=== PATIENT | female | born 1955 | race African-American/Black ===

== ENCOUNTER 2017-12-13 16:16 | Emergency (ER) | payer MEDICAID, OTHER ==
[~2017-12-13] VITALS: Ht 162.6 cm; Wt 60.0 kg
[~2017-12-13 16:16] MED LIST: ASPI-1159 PO; BACL-141 PO; CHOL400T15 PO; ERGO500013 PO; GABA-529 PO; LOSA25TA3 PO; METH-375 PO; SIMV10TA2 PO
[2017-12-13 16:59] LABS: BASOPHILS % 0.8 % (0.0-2.0); EOSINOPHILS % 2.3 % (0.0-5.0); HEMOGLOBIN. 13.6 g/dL (12.0-16.0); LYMPHOCYTES % 24.1 % (20.0-50.0); MEAN CORPUSCULAR HEMOGLOBIN 31.1 pg (28.0-32.0); MEAN CORPUSCULAR VOLUME 91.8 fL (81.0-99.0); MEAN PLATELET VOLUME 6.8 fl (7.4-10.4); MONOCYTES % 9.9 % (2.0-8.0); NEUTROPHILS % 62.9 % (40.0-76.0); PLATELET 325 x1000/uL (130-400); RED BLOOD CELL COUNT 4.36 mill/uL (4.2-5.4); RED CELL DISTRIBUTION WIDTH 14.4 % (11.6-14.6)
[2017-12-13 17:06] LABS: CHLORIDE 105 mEq/L (98-107)
[2017-12-13 17:10] LABS: ETHANOL BLOOD < 10 mg/dL
[2017-12-13 18:48] VITALS: BP 153/88
== END 2017-12-13 18:55 | disposition home or self-care (01) ==
LOC: ER 16:31
DX: R20.2 Paresthesia of skin (principal); E11.9 Type 2 diabetes mellitus without complications; E78.00 Pure hypercholesterolemia, unspecified; I10 Essential (primary) hypertension; Z79.82 Long term (current) use of aspirin; Z86.73 Personal history of transient ischemic attack (TIA), and cerebral infarction without residual deficits
CPT/HCPCS: 36415; 70450; 71045; 80053; 82962; 85025; 99285; G0482

== ENCOUNTER 2018-01-07 16:08 | Emergency (ER) | payer OTHER, MEDICAID ==
[~2018-01-07] VITALS: Ht 162.6 cm; Wt 50.0 kg
[2018-01-07 16:14] VITALS: BP 120/62
== END 2018-01-07 19:36 | disposition left against medical advice (07) ==
LOC: ER 16:25
DX: R20.0 Anesthesia of skin (principal); R53.1 Weakness; E11.9 Type 2 diabetes mellitus without complications; I10 Essential (primary) hypertension; E78.00 Pure hypercholesterolemia, unspecified
CPT/HCPCS: 99283

== ENCOUNTER 2019-06-22 10:56 | Inpatient (IN) | payer MEDICAID, OTHER ==
[~2019-06-22] VITALS: Ht 152.4 cm; Wt 49.4 kg
[~2019-06-22 10:56] MED LIST changes: -ASPI-1159 PO; +ASPI-1393 PO
[2019-06-22] MEDS ORDERED: SODIUM CHLORIDE 0.9% 500 ML IV ONE (11:44)
[2019-06-22 12:00] LABS: BASOPHILS % 0.7 % (0.0-2.0); EOSINOPHILS % 2.5 % (0.0-5.0); HEMATOCRIT. 39.7 % (36.0-48.0); HEMOGLOBIN. 13.3 g/dL (12.0-16.0); LYMPHOCYTES % 21.2 % (20.0-50.0); MEAN CORPUSCULAR HEMOGLOBIN 31.7 pg (28.0-32.0); MEAN CORPUSCULAR VOLUME 94.6 fL (81.0-99.0); MEAN PLATELET VOLUME 6.9 fl (7.4-10.4); MONOCYTES % 9.8 % (2.0-8.0); NEUTROPHILS % 65.8 % (40.0-76.0); PLATELET 385 x1000/uL (130-400); RED BLOOD CELL COUNT 4.19 mill/uL (4.2-5.4); RED CELL DISTRIBUTION WIDTH 13.5 % (11.6-14.6)
[2019-06-22 12:05] LABS: CHLORIDE 106 mEq/L (98-107)
[2019-06-22 12:09] LABS: CLARITY URINE CLOUDY (CLEAR); COLOR URINE YELLOW (YELLOW); KETONES URINE NEGATIVE (NEGATIVE); LEUKOCYTE ESTERASE URINE TRACE (NEGATIVE); NITRITE URINE NEGATIVE (NEGATIVE); OCCULT BLOOD URINE NEGATIVE (NEGATIVE); PROTEIN URINE NEGATIVE (NEGATIVE); SPECIFIC GRAVITY URINE 1.014 (1.005-1.030)
[2019-06-22 12:16] LABS: CREATINE KINASE 251 IU/L (26-192)
[2019-06-22 12:19] LABS: CREATINE KINASE MB FRACTION 3.9 ng/mL (0.5-3.6)
[2019-06-22] MEDS ORDERED: TRAMADOL 50MG TABLET PO ONE (14:00)
[2019-06-22] MEDS ORDERED: GABAPENTIN 300MG CAPSULE PO ONE (14:00)
[2019-06-22 17:00] VITALS: BP 93/76
[2019-06-22] MEDS ORDERED: IPRATROPIUM/ALBUTEROL 0.5-3(2.5)MG/3ML NEB HHN PRN (17:15)
[2019-06-22] MEDS ORDERED: GUAIFENESIN 200MG/10ML SUGAR FREE UDC PO PRN (17:15)
[2019-06-22] MEDS ORDERED: DIPHENHYDRAMINE 50MG/ML VIAL IV PRN (17:15)
[2019-06-22] MEDS ORDERED: HYDROCODONE/ACETAMINOPHEN 10/325MG TABLET PO PRN (17:15)
[2019-06-22] MEDS ORDERED: NA PHOS,M-B/NA PHOS,DI-BA ENEMA 118ML PR PRN (17:15)
[2019-06-22] MEDS ORDERED: ACETAMINOPHEN 325MG TABLET PO PRN (17:15)
[2019-06-22] MEDS ORDERED: LORAZEPAM 2MG/ML CPJ IV PRN (17:15)
[2019-06-22] MEDS ORDERED: MORPHINE SULFATE 2 MG/ML CPJ (NOT FOR IM USE) IV PRN (17:15)
[2019-06-22] MEDS ORDERED: ONDANSETRON HCL 4MG/2ML INJ IV PRN (17:15)
[2019-06-22] MEDS ORDERED: MAGNESIUM/ALUMINUM HYDROXIDE/SIMETHICONE 30ML UDC PO PRN (17:15)
[2019-06-22] MEDS ORDERED: CLONIDINE 0.1MG TABLET PO PRN (17:15)
[2019-06-22] MEDS ORDERED: DEXTROSE 50% WATER 50ML SYRINGE IV PRN (17:15)
[2019-06-22] MEDS ORDERED: DOCUSATE SODIUM 100MG CAPSULE PO PRN (17:15)
[2019-06-22] MEDS: BLOOD SUGAR DIAGNOSTIC STRIP TEST SCH ×2 (19:04→21:46)
[2019-06-22] MEDS: INSULIN LISPRO 100 UNITS/ML SUBCUT SCH ×2 (19:04→21:00)
[2019-06-22] MEDS: ENOXAPARIN 40MG/0.4ML SYR SUBCUT SCH (19:23)
[2019-06-22 20:49] VITALS: BP 126/62
[2019-06-22] MEDS: SODIUM CHLORIDE 0.9% INJ 3ML FLUSH IVF SCH (22:00)
[2019-06-23] VITALS: BP 124/89
[2019-06-23 01:53] LABS: CREATINE KINASE 171 IU/L (26-192)
[2019-06-23 04:44] VITALS: BP 161/63
[2019-06-23] MEDS: BLOOD SUGAR DIAGNOSTIC STRIP TEST SCH ×4 (07:10→21:27)
[2019-06-23] MEDS: SODIUM CHLORIDE 0.9% INJ 3ML FLUSH IVF SCH ×3 (07:10→21:29)
[2019-06-23] MEDS: INSULIN LISPRO 100 UNITS/ML SUBCUT SCH ×4 (07:13→21:00)
[2019-06-23 08:00] VITALS: BP 86/52
[2019-06-23 08:11] LABS: HEMATOCRIT. 38.2 % (36.0-48.0); HEMOGLOBIN. 12.7 g/dL (12.0-16.0); MEAN CORPUSCULAR HEMOGLOBIN 31.7 pg (28.0-32.0); MEAN CORPUSCULAR VOLUME 95.3 fL (81.0-99.0); MEAN PLATELET VOLUME 6.7 fl (7.4-10.4); PLATELET 366 x1000/uL (130-400); RED CELL DISTRIBUTION WIDTH 13.9 % (11.6-14.6)
[2019-06-23 08:17] LABS: CHLORIDE 106 mEq/L (98-107)
[2019-06-23 08:26] LABS: LDL CHOLESTEROL 106 mg/dL (5-100)
[2019-06-23 08:27] LABS: CREATINE KINASE 193 IU/L (26-192); CREATINE KINASE MB FRACTION 4.8 ng/mL (0.5-3.6); HDL CHOLESTEROL 81 mg/dL (40-59)
[2019-06-23 11:31] LABS: PLATELET ESTIMATE NORMAL
[2019-06-23 12:00] VITALS: BP 145/88
[2019-06-23 13:54] LABS: *AMPHETAMINES SCREEN URINE NEGATIVE (NEGATIVE); *BENZODIAZEPINES SCREEN URINE NEGATIVE (NEGATIVE); *COCAINE SCREEN URINE PRESUMTIVE POSITIVE (NEGATIVE); METHADONE URINE SCREEN NEGATIVE (NEGATIVE)
[2019-06-23 13:55] LABS: *BARBITURATES SCREEN URINE NEGATIVE (NEGATIVE); CANNABINOID URINE SCREEN NEGATIVE (NEGATIVE); OPIATES URINE SCREEN NEGATIVE (NEGATIVE); PHENCYCLIDINE URINE SCREEN NEGATIVE (NEGATIVE)
[2019-06-23 16:00] VITALS: BP 177/92
[2019-06-23] MEDS: ASPIRIN 81MG EC TABLET PO SCH (16:30)
[2019-06-23 20:00] VITALS: BP 145/68
[2019-06-23] MEDS: ATORVASTATIN CALCIUM 20MG TABLET PO SCH (21:27)
[2019-06-24] VITALS: BP 130/83
[2019-06-24 04:00] VITALS: BP 159/77
[2019-06-24] MEDS: BLOOD SUGAR DIAGNOSTIC STRIP TEST SCH ×4 (06:34→21:00)
[2019-06-24] MEDS: SODIUM CHLORIDE 0.9% INJ 3ML FLUSH IVF SCH ×3 (06:34→22:08)
[2019-06-24 06:46] LABS: BASOPHILS % 0.2 % (0.0-2.0); EOSINOPHILS % 2.9 % (0.0-5.0); HEMATOCRIT. 36.1 % (36.0-48.0); HEMOGLOBIN. 12.1 g/dL (12.0-16.0); LYMPHOCYTES % 24.1 % (20.0-50.0); MEAN CORPUSCULAR HEMOGLOBIN 31.9 pg (28.0-32.0); MEAN CORPUSCULAR VOLUME 95.1 fL (81.0-99.0); MONOCYTES % 10.8 % (2.0-8.0); PLATELET 324 x1000/uL (130-400); RED BLOOD CELL COUNT 3.79 mill/uL (4.2-5.4); RED CELL DISTRIBUTION WIDTH 13.5 % (11.6-14.6)
[2019-06-24 06:50] LABS: CHLORIDE 106 mEq/L (98-107)
[2019-06-24] MEDS: INSULIN LISPRO 100 UNITS/ML SUBCUT SCH ×4 (07:45→21:00)
[2019-06-24 08:07] VITALS: BP 134/68
[2019-06-24] MEDS: ASPIRIN 81MG EC TABLET PO SCH (09:13)
[2019-06-24 11:56] VITALS: BP 183/91
[2019-06-24] MEDS: HYDRALAZINE 20MG/ML VIAL IV PRN (12:26)
[2019-06-24 16:30] VITALS: BP 156/84
[2019-06-24] MEDS: ENOXAPARIN 40MG/0.4ML SYR SUBCUT SCH ×2 (17:38→18:00)
[2019-06-24 20:00] VITALS: BP 120/75
[2019-06-24] MEDS: ATORVASTATIN CALCIUM 20MG TABLET PO SCH (22:08)
[2019-06-25] VITALS: BP 163/78
[2019-06-25 04:00] VITALS: BP 167/84
[2019-06-25] MEDS: SODIUM CHLORIDE 0.9% INJ 3ML FLUSH IVF SCH ×3 (06:25→20:59)
[2019-06-25] MEDS: BLOOD SUGAR DIAGNOSTIC STRIP TEST SCH ×4 (07:20→20:58)
[2019-06-25] MEDS: INSULIN LISPRO 100 UNITS/ML SUBCUT SCH ×4 (07:50→20:58)
[2019-06-25 08:18] VITALS: BP 153/86
[2019-06-25] MEDS: ASPIRIN 81MG EC TABLET PO SCH (09:02)
[2019-06-25 12:01] VITALS: BP 92/77
[2019-06-25 16:01] VITALS: BP 151/78
[2019-06-25 16:20] LABS: CREATINE KINASE 323 IU/L (26-192)
[2019-06-25 16:21] LABS: CREATINE KINASE MB FRACTION 4.9 ng/mL (0.5-3.6)
[2019-06-25 16:22] LABS: T4 FREE 1.01 ng/dL (0.76-1.46)
[2019-06-25] MEDS: ENOXAPARIN 40MG/0.4ML SYR SUBCUT SCH (17:29)
[2019-06-25 20:00] VITALS: BP 146/82
[2019-06-25] MEDS: ATORVASTATIN CALCIUM 20MG TABLET PO SCH (20:58)
[2019-06-26] VITALS: BP 159/82
[2019-06-26 04:00] VITALS: BP 172/90
[2019-06-26] MEDS: SODIUM CHLORIDE 0.9% INJ 3ML FLUSH IVF SCH ×3 (05:06→20:53)
[2019-06-26] MEDS: HYDRALAZINE 20MG/ML VIAL IV PRN (05:06)
[2019-06-26] MEDS: BLOOD SUGAR DIAGNOSTIC STRIP TEST SCH ×4 (07:50→20:53)
[2019-06-26] MEDS: INSULIN LISPRO 100 UNITS/ML SUBCUT SCH ×4 (07:50→21:00)
[2019-06-26] MEDS ORDERED: HEPARIN 100 UNITS/1 ML VIAL IVF PRN (08:15)
[2019-06-26] MEDS: ASPIRIN 81MG EC TABLET PO SCH (10:52)
[2019-06-26 12:13] VITALS: BP 101/62
[2019-06-26 14:35] VITALS: BP 163/90
[2019-06-26] MEDS ORDERED: IOHEXOL-350 100 ML BOTTLE ONE (15:12)
[2019-06-26 16:26] LABS: EOSINOPHILS % 0.4 % (0.0-5.0); HEMATOCRIT. 39.6 % (36.0-48.0); HEMOGLOBIN. 13.2 g/dL (12.0-16.0); LYMPHOCYTES % 16.2 % (20.0-50.0); MEAN CORPUSCULAR HEMOGLOBIN 31.7 pg (28.0-32.0); MEAN CORPUSCULAR VOLUME 95.1 fL (81.0-99.0); MEAN PLATELET VOLUME 6.9 fl (7.4-10.4); NEUTROPHILS % 72.4 % (40.0-76.0); PLATELET 344 x1000/uL (130-400); RED BLOOD CELL COUNT 4.17 mill/uL (4.2-5.4)
[2019-06-26 16:29] LABS: CHLORIDE 108 mEq/L (98-107)
[2019-06-26 16:36] LABS: CREATINE KINASE 270 IU/L (26-192)
[2019-06-26 16:38] LABS: CREATINE KINASE 268 IU/L (26-192); CREATINE KINASE MB FRACTION 3.8 ng/mL (0.5-3.6)
[2019-06-26 16:39] VITALS: BP 134/82
[2019-06-26 16:39] LABS: CREATINE KINASE MB FRACTION 3.9 ng/mL (0.5-3.6)
[2019-06-26] MEDS: ENOXAPARIN 40MG/0.4ML SYR SUBCUT SCH (17:27)
[2019-06-26 20:00] VITALS: BP 147/82
[2019-06-26] MEDS: ATORVASTATIN CALCIUM 20MG TABLET PO SCH (20:51)
[2019-06-27] VITALS: BP 154/82
[2019-06-27 04:00] VITALS: BP 158/100
[2019-06-27] MEDS: SODIUM CHLORIDE 0.9% INJ 3ML FLUSH IVF SCH ×3 (05:23→21:14)
[2019-06-27 06:50] LABS: CHLORIDE 108 mEq/L (98-107)
[2019-06-27 07:17] LABS: HEMATOCRIT. 35.3 % (36.0-48.0); HEMOGLOBIN. 11.9 g/dL (12.0-16.0); MEAN CORPUSCULAR HEMOGLOBIN 32.2 pg (28.0-32.0); MEAN PLATELET VOLUME 7.1 fl (7.4-10.4); PLATELET 317 x1000/uL (130-400); RED BLOOD CELL COUNT 3.71 mill/uL (4.2-5.4); RED CELL DISTRIBUTION WIDTH 13.4 % (11.6-14.6)
[2019-06-27] MEDS: BLOOD SUGAR DIAGNOSTIC STRIP TEST SCH ×4 (07:20→21:14)
[2019-06-27] MEDS: INSULIN LISPRO 100 UNITS/ML SUBCUT SCH ×4 (07:50→21:00)
[2019-06-27 08:00] VITALS: BP 140/76
[2019-06-27 09:23] LABS: PLATELET ESTIMATE NORMAL
[2019-06-27] MEDS: ASPIRIN 81MG EC TABLET PO SCH (09:24)
[2019-06-27 12:00] VITALS: BP 132/81
[2019-06-27 16:00] VITALS: BP 156/74
[2019-06-27] MEDS: ENOXAPARIN 40MG/0.4ML SYR SUBCUT SCH (19:23)
[2019-06-27 20:00] VITALS: BP 140/72
[2019-06-27] MEDS: ATORVASTATIN CALCIUM 20MG TABLET PO SCH (21:14)
[2019-06-28] VITALS: BP 168/74
[2019-06-28 04:00] VITALS: BP 109/64
[2019-06-28] MEDS: SODIUM CHLORIDE 0.9% INJ 3ML FLUSH IVF SCH ×2 (05:11→13:19)
[2019-06-28] MEDS: BLOOD SUGAR DIAGNOSTIC STRIP TEST SCH ×3 (06:31→18:04)
[2019-06-28] MEDS: INSULIN LISPRO 100 UNITS/ML SUBCUT SCH ×3 (07:50→17:50)
[2019-06-28 08:19] VITALS: BP 131/64
[2019-06-28] MEDS: ASPIRIN 81MG EC TABLET PO SCH (08:33)
[2019-06-28 12:03] VITALS: BP 129/71
[2019-06-28 16:22] VITALS: BP 129/71
[2019-06-28 16:44] VITALS: BP 148/78
[2019-06-28] MEDS: ENOXAPARIN 40MG/0.4ML SYR SUBCUT SCH (18:05)
== END 2019-06-28 21:00 | disposition home health service (06) | DRG 45 ==
LOC: ER 10:56 → 6WST 14:14 → EDBEDREQTM 14:21 → EDBEDREQ 14:21 → ENRESERV 15:59 → 6WST 06-23 09:38
PROVIDERS: ADMIT Internal Medicine; ATTEND Internal Medicine
PROC: 4A00X4Z Measurement of Central Nervous Electrical Activity, External Approach (ICD-10-PCS; principal; 2019-06-24)
PROC: 05HY33Z Insertion of Infusion Device into Upper Vein, Percutaneous Approach (ICD-10-PCS; 2019-06-26)
PROC: B54MZZA Ultrasonography of Right Upper Extremity Veins, Guidance (ICD-10-PCS; 2019-06-26)
PROC: B51M1ZA Fluoroscopy of Right Upper Extremity Veins using Low Osmolar Contrast, Guidance (ICD-10-PCS; 2019-06-26)
DX: I63.9 Cerebral infarction, unspecified (principal); I11.9 Hypertensive heart disease without heart failure; E11.9 Type 2 diabetes mellitus without complications; I65.21 Occlusion and stenosis of right carotid artery; E78.5 Hyperlipidemia, unspecified; E78.00 Pure hypercholesterolemia, unspecified; R29.6 Repeated falls; Z79.899 Other long term (current) drug therapy; Z79.82 Long term (current) use of aspirin
CPT/HCPCS: 36415; 36573; 70498; 70551; 71045; 76937; 80048; 80061; 80305; 81003; 82550; 82553; 82962; 83036; 83735; 83880; 84439; 84443; 84484; 85379; 93005; 93306; 93880; 93970; 95816; 97116; 97162; 97530; 99285; C1725; J0360; J1650; J7040; Q9967

== ENCOUNTER 2019-09-01 08:39 | Emergency (ER) | payer MEDICAID, OTHER ==
[~2019-09-01] VITALS: Ht 165.1 cm; Wt 59.0 kg
[~2019-09-01 08:39] MED LIST changes: -ASPI-1393 PO; +ASPI-1497 PO
[2019-09-01] MEDS ORDERED: OXYCODONE HCL/ACETAMINOPHEN 5/325MG TABLET PO ONE (09:00)
[2019-09-01 14:21] VITALS: BP 126/78
== END 2019-09-01 14:24 | disposition home or self-care (01) ==
LOC: ER 08:39
DX: S86.911A Strain of unspecified muscle(s) and tendon(s) at lower leg level, right leg, initial encounter (principal); I10 Essential (primary) hypertension; E11.9 Type 2 diabetes mellitus without complications; E78.00 Pure hypercholesterolemia, unspecified; F17.210 Nicotine dependence, cigarettes, uncomplicated; Z86.73 Personal history of transient ischemic attack (TIA), and cerebral infarction without residual deficits; X58.XXXA Exposure to other specified factors, initial encounter; Y93.89 Activity, other specified; Y92.018 Other place in single-family (private) house as the place of occurrence of the external cause
CPT/HCPCS: 73590; 99283

== ENCOUNTER 2021-01-19 16:30 | Inpatient (IN) | payer MEDICARE, OTHER ==
[~2021-01-19] VITALS: Ht 162.6 cm; Wt 45.6 kg
[2021-01-19] MEDS ORDERED: MAGNESIUM/ALUMINUM HYDROXIDE/SIMETHICONE 30ML UDC PO STA (17:09)
[2021-01-19 17:29] LABS: BASOPHILS % 0.3 % (0.0-2.0); EOSINOPHILS % 2.5 % (0.0-5.0); HEMATOCRIT. 28.6 % (36.0-48.0); HEMOGLOBIN. 9.6 g/dL (12.0-16.0); LYMPHOCYTES % 17.1 % (20.0-50.0); MEAN CORPUSCULAR HEMOGLOBIN 30.6 pg (28.0-32.0); MEAN CORPUSCULAR VOLUME 90.7 fL (81.0-99.0); MEAN PLATELET VOLUME 7.3 fl (7.4-10.4); MONOCYTES % 7.7 % (2.0-8.0); NEUTROPHILS % 72.4 % (40.0-76.0); PLATELET 258 x1000/uL (130-400); RED BLOOD CELL COUNT 3.15 mill/uL (4.2-5.4); RED CELL DISTRIBUTION WIDTH 14.7 % (11.6-14.6)
[2021-01-19 17:47] LABS: CHLORIDE 113 mEq/L (98-107)
[2021-01-19 21:37] LABS: CLARITY URINE CLOUDY (CLEAR); COLOR URINE YELLOW (YELLOW); KETONES URINE NEGATIVE (NEGATIVE); LEUKOCYTE ESTERASE URINE 1+ (NEGATIVE); NITRITE URINE NEGATIVE (NEGATIVE); OCCULT BLOOD URINE NEGATIVE (NEGATIVE); PROTEIN URINE TRACE (NEGATIVE); SPECIFIC GRAVITY URINE 1.021 (1.005-1.030); UROBILINOGEN URINE 0.2 E.U./dL (0.2-1.0)
[2021-01-19] MEDS ORDERED: IOHEXOL-350 100 ML BOTTLE ONE (21:58)
[2021-01-19] MEDS ORDERED: NICARDIPINE 50 MG in SODIUM CHLORIDE 0.9% 230 ML IV STA (22:44)
[2021-01-19] MEDS ORDERED: CEFTRIAXONE 1 G PREMIX 50 ML IV ONE (22:45)
[2021-01-19] MEDS ORDERED: NICARDIPINE 40MG/200ML PREMIX 200 ML IV PRN ×2 (23:00→23:30)
[2021-01-20] VITALS (87 sets, daily range): BP systolic 73–182; BP diastolic 49–98
[2021-01-20] MEDS: NICARDIPINE 50 MG in SODIUM CHLORIDE 0.9% 250 ML IV PRN ×2 (03:11→22:06)
[2021-01-20 06:01] LABS: BASOPHILS % 0.8 % (0.0-2.0); EOSINOPHILS % 4.5 % (0.0-5.0); HEMATOCRIT. 29.7 % (36.0-48.0); LYMPHOCYTES % 27.8 % (20.0-50.0); MEAN CORPUSCULAR HEMOGLOBIN 30.2 pg (28.0-32.0); MEAN CORPUSCULAR VOLUME 89.9 fL (81.0-99.0); NEUTROPHILS % 56.9 % (40.0-76.0); RED BLOOD CELL COUNT 3.31 mill/uL (4.2-5.4); RED CELL DISTRIBUTION WIDTH 14.6 % (11.6-14.6)
[2021-01-20 12:20] LABS: PLATELET 238 x1000/uL (130-400)
[2021-01-20] MEDS ORDERED: DEXTROSE 50% WATER 50ML SYRINGE IV PRN (19:45)
[2021-01-20] MEDS: METOPROLOL TARTRATE 50MG TABLET PO SCH (19:49)
[2021-01-20] MEDS: ACETAMINOPHEN 325MG TABLET PO PRN (19:49)
[2021-01-20] MEDS: ATORVASTATIN CALCIUM 40MG TABLET PO SCH (19:49)
[2021-01-20] MEDS: BLOOD SUGAR DIAGNOSTIC STRIP TEST SCH (21:00)
[2021-01-20] MEDS ORDERED: BLOOD SUGAR DIAGNOSTIC STRIP TEST SCH (21:00)
[2021-01-20] MEDS: INSULIN LISPRO 100 UNITS/ML SUBCUT SCH (21:00)
[2021-01-21] VITALS (86 sets, daily range): BP systolic 86–161; BP diastolic 40–97
[2021-01-21] MEDS: NICARDIPINE 50 MG in SODIUM CHLORIDE 0.9% 250 ML IV PRN ×2 (04:07→14:13)
[2021-01-21 06:10] LABS: BASOPHILS % 0.7 % (0.0-2.0); EOSINOPHILS % 5.4 % (0.0-5.0); HEMATOCRIT. 32.1 % (36.0-48.0); HEMOGLOBIN. 10.6 g/dL (12.0-16.0); LYMPHOCYTES % 22.5 % (20.0-50.0); MEAN CORPUSCULAR HEMOGLOBIN 30.1 pg (28.0-32.0); MEAN PLATELET VOLUME 7.1 fl (7.4-10.4); MONOCYTES % 10.6 % (2.0-8.0); NEUTROPHILS % 60.8 % (40.0-76.0); PLATELET 247 x1000/uL (130-400); RED BLOOD CELL COUNT 3.52 mill/uL (4.2-5.4); RED CELL DISTRIBUTION WIDTH 14.5 % (11.6-14.6)
[2021-01-21 06:13] LABS: CHLORIDE 113 mEq/L (98-107)
[2021-01-21] MEDS: BLOOD SUGAR DIAGNOSTIC STRIP TEST SCH ×4 (07:50→21:00)
[2021-01-21] MEDS: INSULIN LISPRO 100 UNITS/ML SUBCUT SCH ×4 (08:20→21:00)
[2021-01-21] MEDS: METOPROLOL TARTRATE 50MG TABLET PO SCH ×2 (09:02→21:00)
[2021-01-21 09:50] LABS: BASOPHILS % 0.7 % (0.0-2.0); EOSINOPHILS % 3.2 % (0.0-5.0); HEMOGLOBIN. 10.6 g/dL (12.0-16.0); LYMPHOCYTES % 22.3 % (20.0-50.0); MEAN CORPUSCULAR HEMOGLOBIN 30.4 pg (28.0-32.0); MEAN CORPUSCULAR VOLUME 91.5 fL (81.0-99.0); MEAN PLATELET VOLUME 7.1 fl (7.4-10.4); MONOCYTES % 8.9 % (2.0-8.0); NEUTROPHILS % 64.9 % (40.0-76.0); PLATELET 261 x1000/uL (130-400); RED BLOOD CELL COUNT 3.49 mill/uL (4.2-5.4); RED CELL DISTRIBUTION WIDTH 14.4 % (11.6-14.6)
[2021-01-21 12:30] LABS: CHLORIDE 111 mEq/L (98-107)
[2021-01-21] MEDS ORDERED: LORAZEPAM 2MG/ML CPJ IV PRN (18:15)
[2021-01-21] MEDS: NICOTINE 21MG PATCH TD SCH (21:00)
[2021-01-21] MEDS: ATORVASTATIN CALCIUM 40MG TABLET PO SCH (21:00)
[2021-01-21] MEDS ORDERED: ASPIRIN 300MG SUPP PR NR (22:30)
[2021-01-21] MEDS ORDERED: IOHEXOL-350 100 ML BOTTLE ONE (23:54)
[2021-01-22] VITALS (84 sets, daily range): BP systolic 99–148; BP diastolic 53–95
[2021-01-22 05:20] LABS: BASOPHILS % 0.6 % (0.0-2.0); EOSINOPHILS % 1.7 % (0.0-5.0); HEMATOCRIT. 32.6 % (36.0-48.0); HEMOGLOBIN. 10.9 g/dL (12.0-16.0); LYMPHOCYTES % 20.9 % (20.0-50.0); MEAN CORPUSCULAR HEMOGLOBIN 30.2 pg (28.0-32.0); MEAN CORPUSCULAR VOLUME 89.9 fL (81.0-99.0); MONOCYTES % 11.1 % (2.0-8.0); NEUTROPHILS % 65.7 % (40.0-76.0); PLATELET 253 x1000/uL (130-400); RED BLOOD CELL COUNT 3.63 mill/uL (4.2-5.4); RED CELL DISTRIBUTION WIDTH 14.6 % (11.6-14.6)
[2021-01-22 05:56] LABS: CHLORIDE 111 mEq/L (98-107)
[2021-01-22] MEDS: NICARDIPINE 50 MG in SODIUM CHLORIDE 0.9% 250 ML IV PRN ×2 (07:28→22:52)
[2021-01-22] MEDS: INSULIN LISPRO 100 UNITS/ML SUBCUT SCH ×4 (08:20→20:19)
[2021-01-22] MEDS: BLOOD SUGAR DIAGNOSTIC STRIP TEST SCH ×4 (08:23→20:20)
[2021-01-22] MEDS: METOPROLOL TARTRATE 50MG TABLET PO SCH ×2 (08:40→20:19)
[2021-01-22] MEDS: LOSARTAN POTASSIUM 50 MG TABLET PO SCH (11:26)
[2021-01-22] MEDS: ATORVASTATIN CALCIUM 40MG TABLET PO SCH (20:14)
[2021-01-22] MEDS: NICOTINE 21MG PATCH TD SCH (20:20)
[2021-01-23] VITALS (90 sets, daily range): BP systolic 94–157; BP diastolic 34–123
[2021-01-23 00:47] LABS: ETHANOL BLOOD < 10 mg/dL
[2021-01-23 01:02] LABS: T4 FREE 1.11 ng/dL (0.76-1.46)
[2021-01-23 01:05] LABS: FOLIC ACID (FOLATE) SERUM 17.2 ng/mL (>5.38)
[2021-01-23 05:46] LABS: BASOPHILS % 0.5 % (0.0-2.0); EOSINOPHILS % 3.6 % (0.0-5.0); HEMATOCRIT. 30.5 % (36.0-48.0); MEAN CORPUSCULAR HEMOGLOBIN 29.8 pg (28.0-32.0); MEAN CORPUSCULAR VOLUME 90.9 fL (81.0-99.0); MEAN PLATELET VOLUME 7.3 fl (7.4-10.4); MONOCYTES % 13.9 % (2.0-8.0); PLATELET 241 x1000/uL (130-400); RED BLOOD CELL COUNT 3.35 mill/uL (4.2-5.4); RED CELL DISTRIBUTION WIDTH 14.8 % (11.6-14.6)
[2021-01-23] MEDS: INSULIN LISPRO 100 UNITS/ML SUBCUT SCH ×4 (08:07→20:26)
[2021-01-23] MEDS: BLOOD SUGAR DIAGNOSTIC STRIP TEST SCH ×4 (08:07→20:26)
[2021-01-23] MEDS: METOPROLOL TARTRATE 50MG TABLET PO SCH ×2 (08:54→20:32)
[2021-01-23] MEDS: LOSARTAN POTASSIUM 50 MG TABLET PO SCH (08:54)
[2021-01-23] MEDS: LACTULOSE 20G/30ML UDC PO SCH ×2 (15:26→22:17)
[2021-01-23] MEDS: ACETAMINOPHEN 325MG TABLET PO PRN (18:25)
[2021-01-23] MEDS: ATORVASTATIN CALCIUM 40MG TABLET PO SCH (20:32)
[2021-01-23] MEDS: NICOTINE 21MG PATCH TD SCH (20:32)
[2021-01-23] MEDS: NICARDIPINE 50 MG in SODIUM CHLORIDE 0.9% 250 ML IV PRN (23:29)
[2021-01-23 23:42] LABS: *AMPHETAMINES SCREEN URINE NEGATIVE (NEGATIVE); *BARBITURATES SCREEN URINE NEGATIVE (NEGATIVE); *BENZODIAZEPINES SCREEN URINE NEGATIVE (NEGATIVE); *COCAINE SCREEN URINE NEGATIVE (NEGATIVE); METHADONE URINE SCREEN NEGATIVE (NEGATIVE); OPIATES URINE SCREEN NEGATIVE (NEGATIVE)
[2021-01-23 23:43] LABS: CANNABINOID URINE SCREEN NEGATIVE (NEGATIVE); PHENCYCLIDINE URINE SCREEN NEGATIVE (NEGATIVE)
[2021-01-24] VITALS (82 sets, daily range): BP systolic 114–217; BP diastolic 38–107
[2021-01-24 05:53] LABS: BASOPHILS % 0.6 % (0.0-2.0); EOSINOPHILS % 5.2 % (0.0-5.0); HEMATOCRIT. 30.5 % (36.0-48.0); LYMPHOCYTES % 24.5 % (20.0-50.0); MEAN CORPUSCULAR HEMOGLOBIN 29.7 pg (28.0-32.0); MEAN CORPUSCULAR VOLUME 91.1 fL (81.0-99.0); MONOCYTES % 14.4 % (2.0-8.0); NEUTROPHILS % 55.3 % (40.0-76.0); PLATELET 224 x1000/uL (130-400); RED BLOOD CELL COUNT 3.35 mill/uL (4.2-5.4); RED CELL DISTRIBUTION WIDTH 14.4 % (11.6-14.6)
[2021-01-24 06:03] LABS: CHLORIDE 111 mEq/L (98-107)
[2021-01-24] MEDS: BLOOD SUGAR DIAGNOSTIC STRIP TEST SCH ×4 (07:50→21:00)
[2021-01-24] MEDS: INSULIN LISPRO 100 UNITS/ML SUBCUT SCH ×4 (08:20→21:00)
[2021-01-24] MEDS: LOSARTAN POTASSIUM 50 MG TABLET PO SCH (09:41)
[2021-01-24] MEDS: METOPROLOL TARTRATE 50MG TABLET PO SCH ×2 (09:41→20:59)
[2021-01-24] MEDS: ACETAMINOPHEN 325MG TABLET PO PRN (10:54)
[2021-01-24] MEDS: NICARDIPINE 50 MG in SODIUM CHLORIDE 0.9% 250 ML IV PRN (11:50)
[2021-01-24] MEDS ORDERED: METO-539 PO (13:16)
[2021-01-24] MEDS ORDERED: HYDR-4135 MT (13:54)
[2021-01-24] MEDS ORDERED: HYDRALAZINE HCL 25MG TABLET PO SCH (14:00)
[2021-01-24] MEDS: HYDRALAZINE HCL 50MG TABLET PO SCH (20:59)
[2021-01-24] MEDS: ATORVASTATIN CALCIUM 40MG TABLET PO SCH (20:59)
[2021-01-24] MEDS: NICOTINE 21MG PATCH TD SCH (21:01)
[2021-01-25] VITALS (36 sets, daily range): BP systolic 76–175; BP diastolic 22–125
[2021-01-25 05:46] LABS: BASOPHILS % 0.6 % (0.0-2.0); EOSINOPHILS % 4.8 % (0.0-5.0); HEMATOCRIT. 32.5 % (36.0-48.0); HEMOGLOBIN. 10.6 g/dL (12.0-16.0); LYMPHOCYTES % 21.5 % (20.0-50.0); MEAN CORPUSCULAR HEMOGLOBIN 29.2 pg (28.0-32.0); MEAN CORPUSCULAR VOLUME 89.9 fL (81.0-99.0); MEAN PLATELET VOLUME 7.2 fl (7.4-10.4); MONOCYTES % 11.8 % (2.0-8.0); NEUTROPHILS % 61.3 % (40.0-76.0); PLATELET 261 x1000/uL (130-400); RED BLOOD CELL COUNT 3.62 mill/uL (4.2-5.4); RED CELL DISTRIBUTION WIDTH 14.6 % (11.6-14.6)
[2021-01-25 05:53] LABS: CHLORIDE 111 mEq/L (98-107)
[2021-01-25] MEDS ORDERED: HYDRALAZINE 20MG/ML VIAL IV PRN (08:00)
[2021-01-25] MEDS: INSULIN LISPRO 100 UNITS/ML SUBCUT SCH ×4 (08:20→20:44)
[2021-01-25] MEDS: BLOOD SUGAR DIAGNOSTIC STRIP TEST SCH ×4 (08:43→20:45)
[2021-01-25] MEDS: HYDRALAZINE HCL 50MG TABLET PO SCH ×3 (09:30→17:46)
[2021-01-25] MEDS: LOSARTAN POTASSIUM 50 MG TABLET PO SCH ×2 (09:31→20:43)
[2021-01-25] MEDS: METOPROLOL TARTRATE 50MG TABLET PO SCH ×2 (09:31→20:44)
[2021-01-25] MEDS: ACETAMINOPHEN 325MG TABLET PO PRN (09:33)
[2021-01-25] MEDS ORDERED: ISOSORBIDE MONONITRATE 30MG TABLET SR 24HR PO SCH (11:00)
[2021-01-25] MEDS: NICOTINE 21MG PATCH TD SCH (20:44)
[2021-01-25] MEDS: ATORVASTATIN CALCIUM 40MG TABLET PO SCH (20:44)
== END 2021-01-25 19:50 | disposition home or self-care (01) | DRG 197 ==
LOC: ER 16:38 → CANRESERV 23:23 → ENRESERV 23:23 → CVICU 23:28 → EDBEDREQTM 23:31 → EDBEDREQ 23:31 → EDBEDREQSVC 23:31 → ENRESERV 23:41
PROVIDERS: ADMIT Internal Medicine; ATTEND Internal Medicine
PROC: 4A10X4Z Monitoring of Central Nervous Electrical Activity, External Approach (ICD-10-PCS; principal; 2021-01-23)
DX: I71.4 Abdominal aortic aneurysm, without rupture (principal); E43 Unspecified severe protein-calorie malnutrition; G92 Toxic encephalopathy; J84.9 Interstitial pulmonary disease, unspecified; E11.51 Type 2 diabetes mellitus with diabetic peripheral angiopathy without gangrene; I69.354 Hemiplegia and hemiparesis following cerebral infarction affecting left non-dominant side; R56.9 Unspecified convulsions; I16.9 Hypertensive crisis, unspecified; I65.21 Occlusion and stenosis of right carotid artery; D64.9 Anemia, unspecified; E78.5 Hyperlipidemia, unspecified; I10 Essential (primary) hypertension; J44.9 Chronic obstructive pulmonary disease, unspecified; Z20.822 Contact with and (suspected) exposure to COVID-19; E78.00 Pure hypercholesterolemia, unspecified; I71.2 Thoracic aortic aneurysm, without rupture; Z87.891 Personal history of nicotine dependence; Z79.899 Other long term (current) drug therapy; Z68.1 Body mass index [BMI] 19.9 or less, adult
CPT/HCPCS: 36415; 70496; 70498; 70551; 74174; 74176; 80048; 80053; 80305; 80320; 81003; 82140; 82607; 82746; 82962; 83036; 83735; 84439; 84443; 84481; 85025; 86850; 86900; 86920; 87426; 93005; 93306; 97166; 99291; J0360; J0696; J2060; J3490; J7050; Q9967; G0480